=== PATIENT | female | born 1930 | race Two or more races ===

== ENCOUNTER → 2017-11-21 | Outpatient (CLI) | payer MEDICARE, MEDICAID | END | disposition home or self-care (01) | LOC: KCIC US 12:25 | DX: N28.1 Cyst of kidney, acquired (principal); N26.1 Atrophy of kidney (terminal) | CPT/HCPCS: 76700 ==

== ENCOUNTER 2020-12-04 14:00 | Emergency (ER) | payer OTHER, MEDICAID ==
[~2020-12-04] VITALS: Ht 139.7 cm; Wt 57.0 kg
[~2020-12-04 14:00] MED LIST: ACET325T9 PO; ACET500T68 PO; AMLO-186 PO; AMLO-187 PO; ASPI-482 PO; ASPI-630 PO; CALC-507 PO; CALC1CAP8 PO; CELE200C PO; CLON1PAT TD; CLON1PAT6 TD; CYAN500T7 PO; DENO60DI SQ; DOCU-109 PO; ESOM40CA PO; INSU100V35 SQ; LORA-434 PO; LORA1TAB PO; LUBI24CA7 PO; MAG30ORA2 PO; METO-239 PO; MOTILIUM PO; MULT-245 PO; NYST15CR TP; OLME1TAB51 PO; POLY17PO29 PO; POTA10TA12 PO; POTA10TA31 PO; SENN-142 PO; SIME180C9 PO; SUCR1TAB PO; TRAM50TA PO; VALS40TA2 PO; [UNRECOGNIZED DRUG - CODE] PO; [UNRECOGNIZED DRUG - CODE] PO
[2020-12-04] MEDS ORDERED: fentaNYL PF VIAL 100 MCG/2 ML VIAL IVP ONE (15:00)
--- NOTE | 2020-12-04 15:38 | ED.ADGEN ---
Past Medical History Past Medical History: Cancer, CVA, Dementia, Diabetes-Type II, GERD, Hypertension, Other Additional Past Medical Histor: SCOLIOSIS, COLON CA, GASTRITIS Past Surgical History: Other Additional Past Surgical Histo: COLON RESECTION Smoking Status: Never Smoker Alcohol Use: None General Adult EDM: Chief Complaint: MECHANICAL FALL HPI: HPI: Patient is a 89 year old female coming in for rib pain, hip pain, and head pain after a fall. History facilitated by another known that works as a building equipment operator in the facility.. She states that last night while patient was brushing her teeth she went to turn and lost her balance. She states that the patient has a h istory of difficulty with her balance and frequent falls. No loss of consciousness patient has been able to walk afterwards. Complaining of pain to her ribs but was given a Percocet earlier and states the pain is much better now. The sister she is with states that the patient has been having worsening breathing problems that been exacerbated since the fall. Does not take any blood thinners other than 81 mg aspirin Review of Systems: Review of Systems: All other systems within normal limits except for as noted in the HPI Current Medications: Current Medications Medications (Trade) Dose Ordered Sig/Tere Start Time Stop Time Status Last Admin Dose Admin Fentanyl Citrate (Fentanyl 2ml Vial) 50 mcg 1X ONCE 12/04/20 15:00 12/04/20 15:01 DC 12/04/20 15:47 50 MCG Info (CONTRAST GIVEN -- Rx MONITORING) 1 each PRN DAILY PRN 12/04/20 16:15 12/06/20 16:14 Iohexol (Omnipaque 300 Mg/ml) 100 ml STK-MED ONCE 12/04/20 16:14 12/04/20 16:15 DC Allergies: Allergies: Allergies Coded Allergies Type Severity Reaction Last Updated Verified gluten Allergy Unknown Unknown 05/30/20 Yes Physical Exam: PE: Constitutional: Well developed, well nourished, no acute distress, non-toxic appearance. [] HENT: Normocephalic, small hematoma over left occipital scalp, bilateral external ears normal, nose normal. [] Eyes: PERRLA, conjunctiva normal, no discharge. [] Neck: No rigidity, supple, no stridor. [] Cardiovascular: Regular rate and rhythm, brisk cap refill [] Lungs & Thorax: Non labored symmetric respirations, no tachypnea or respiratory distress. Left chest wall tenderness [] Abdomen: Soft, nondistended, no nontender. Skin: Warm, dry, no erythema, no rash. [] Back: Unremarkable Extremities: No deformities, range of motion grossly intact, no lower extremity edema. No deformities, no tenderness to palpation of left extremities, tenderness over left hip [] Neurologic: Alert and oriented X 3, no focal deficits noted. [] Psychologic: Affect normal, judgement normal, mood normal. [] Current Patient Data: Labs: Laboratory Tests Test 12/04/20 15:15 White Blood Count 9.1 x10^3/uL (4.0-11.0) Red Blood Count 4.01 x10^6/uL (3.50-5.40) Hemoglobin 13.5 g/dL (12.0-15.5) Hematocrit 38.9 % (36.0-47.0) Mean Corpuscular Volume 97 fL (79-100) Mean Corpuscular Hemoglobin 34 pg (25-35) Mean Corpuscular Hemoglobin Concent 35 g/dL (31-37) Red Cell Distribution Width 12.8 % (11.5-14.5) Platelet Count 224 x10^3/uL (140-400) Neutrophils (%) (Auto) 71 % (31-73) Lymphocytes (%) (Auto) 15 % (24-48) L Monocytes (%) (Auto) 12 % (0-9) H Eosinophils (%) (Auto) 2 % (0-3) Basophils (%) (Auto) 1 % (0-3) Neutrophils # (Auto) 6.5 x10^3/uL (1.8-7.7) Lymphocytes # (Auto) 1.3 x10^3/uL (1.0-4.8) Monocytes # (Auto) 1.1 x10^3/uL (0.0-1.1) Eosinophils # (Auto) 0.2 x10^3/uL (0.0-0.7) Basophils # (Auto) 0.0 x10^3/uL (0.0-0.2) Sodium Level 139 mmol/L (136-145) Potassium Level 3.9 mmol/L (3.5-5.1) Chloride Level 103 mmol/L (98-107) Carbon Dioxide Level 32 mmol/L (21-32) Anion Gap 4 (6-14) L Blood Urea Nitrogen 24 mg/dL (7-20) H Creatinine 0.7 mg/dL (0.6-1.0) Estimated GFR (Cockcroft-Gault) 78.8 BUN/Creatinine Ratio 34 (6-20) H Glucose Level 100 mg/dL (70-99) H Calcium Level 9.0 mg/dL (8.5-10.1) Total Bilirubin 0.2 mg/dL (0.2-1.0) Aspartate Amino Transferase (AST) 16 U/L (15-37) Alanine Aminotransferase (ALT) 23 U/L (14-59) Alkaline Phosphatase 64 U/L (46-116) Total Protein 6.7 g/dL (6.4-8.2) Albumin 3.1 g/dL (3.4-5.0) L Albumin/Globulin Ratio 0.9 (1.0-1.7) L Laboratory Tests 12/04/20 15:15 Laboratory Tests 12/04/20 15:15 Vital Signs: Vital Signs Date Time Temp Pulse Resp B/P (MAP) Pulse Ox O2 Delivery O2 Flow Rate FiO2 12/04/20 15:47 18 96 Room Air 12/04/20 14:45 97.5 56 125/69 (87) 97.5 EKG: EKG: [] Heart Score: C/O Chest Pain: No Risk Factors: Risk Factors: DM, Current or recent (<one month) smoker, HTN, HLP, family history of CAD, obesity. Risk Scores: Score 0 - 3: 2.5% MACE over next 6 weeks - Discharge Home Score 4 - 6: 20.3% MACE over next 6 weeks - Admit for Clinical Observation Score 7 - 10: 72.7% MACE over next 6 weeks - Early Invasive Strategies Radiology/Procedures: Radiology/Procedures: CT Head W/O Contrast: History: Reason: fall, HIT HEAD / Spl. Instructions: / History: Comparison: none Axial images were obtained without contrast. There is marked diffuse atrophy. There is no mass effect, extraaxial fluid collections or hydrocephalus. There is no gross bleed. Marked, diffuse periventricular and subcortical white matter hypoattenuation is seen. There is no focal loss of de oliveira-white matter distinction to suggest acute ischemia, i.e. stroke. Impression: No acute findings. End impression CT C-Spine without contrast: Clinical History: Reason: fall, HIT HEAD / Spl. Instructions: / History: Technique: Axial helical images of the cervical spine were obtained without contrast, axial coronal and sagittal reconstruction was performed. Findings: There is no loss of vertebral body stature. There is no prevertebral soft tissue swelling. The vertebral bodies are well aligned. There is straightening of the normal cervical lordosis which can be positional or could be chronic. The C1-C2 relationship is normal. The visualized osseous structures appear normal. Evaluation of the central canal is limited without contrast. There is multiple posterior disc bulges resulting in flattening of the thecal sac. There does not appear to be gross flattening of the cervical cord. There is marked narrowing of multiple neuroforamen. Impression: No acute findings. Clinical correlation suggested. [] CT chest abdomen and pelvis with contrast: History: Fall, left-sided pain Axial helical images of the chest abdomen and pelvis were obtained after the ad ministration of 75 cc IV Omni 300 contrast. Delayed images were obtained from above the kidneys to the urinary bladder. Comparison: none CT OF THE CHEST WITH IV CONTRAST: There is no mediastinal lymphadenopathy or hematoma. Lymphadenopathy: no Thoracic aorta: The ascending thoracic aorta is mildly dilated to 4.3 cm. Lungs and pleural margins: There is patchy opacities throughout the right lung Impression: 1. Right-sided infiltrates likely discoid atelectasis. 2. Dilated ascending thoracic aorta. End Impression CT OF THE ABDOMEN AND PELVIS WITH IV CONTRAST: Liver: Unremarkable Spleen: Unremarkable Pancreas: Unremarkable Adrenal Glands: Unremarkable Kidneys: There are simple cysts bilaterally Evaluation of stomach and bowel is limited without oral contrast. There is marked degenerative levoconvex scoliosis of thoracolumbar spine. Lymphadenopathy: no. Free fluid: no. Free air: no. The bladder appears normal. Impression: No acute findings. Course & Med Decision Making: Course & Med Decision Making Pertinent Labs and Imaging studies reviewed. (See chart for details) No acute injury found on imaging. Patient does have some atelectasis I was given a single spirometer. Discussed pain control and bowel regimen while taking narcotic pain medications. [] Dragon Disclaimer: Dragon Disclaimer: This electronic medical record was generated, in whole or in part, using a voice recognition dictation system. Departure Departure Impression: Primary Impression: Frequent falls Additional Impressions: Rib pain Atelectasis Disposition: 01 DC HOME SELF CARE/HOMELESS Condition: STABLE Referrals: FERNANDA OLIVIER MD (PCP) Patient Instructions: Incentive Spirometer Scripts Hydrocodone Bit/Acetaminophen (HYDROCODONE-APAP 5-325 ) 1 Tab Tablet 1 TAB PO PRN Q6HRS PRN for PAIN for 3 Days, #15 TAB 0 Refills Prov: ASHVIN OSMAN MD 12/04/20 Problem Qualifiers ASHVIN OSMAN MD Dec 04, 2020 15:38
[2020-12-04 15:53] LABS: BASO % 1 % (0-3); EOS # 0.2 x10^3/uL (0.0-0.7); EOS % 2 % (0-3); HEMATOCRIT 38.9 % (36.0-47.0); HEMOGLOBIN 13.5 g/dL (12.0-15.5); LYMPH # 1.3 x10^3/uL (1.0-4.8); LYMPH % 15 % (24-48); MEAN CORPUSCULAR HEMOGLOBIN 34 pg (25-35); MEAN CORPUSCULAR HGB CONC 35 g/dL (31-37); MEAN CORPUSCULAR VOLUME 97 fL (79-100); MONO # 1.1 x10^3/uL (0.0-1.1); MONO % 12 % (0-9); NEUT # 6.5 x10^3/uL (1.8-7.7); NEUT % 71 % (31-73); PLATELET COUNT 224 x10^3/uL (140-400); RED BLOOD COUNT 4.01 x10^6/uL (3.50-5.40); RED CELL DISTRIBUTION WIDTH 12.8 % (11.5-14.5); WHITE BLOOD COUNT 9.1 x10^3/uL (4.0-11.0)
[2020-12-04 16:04] VITALS: BP 124/64
[2020-12-04 16:07] LABS: CREATININE 0.7 mg/dL (0.6-1.0); GFR 78.8; POTASSIUM 3.9 mmol/L (3.5-5.1)
[2020-12-04 16:12] LABS: ALBUMIN 3.1 g/dL (3.4-5.0); ALBUMIN/GLOBULIN RATIO 0.9 (1.0-1.7); TOTAL BILIRUBIN 0.2 mg/dL (0.2-1.0); TOTAL PROTEIN 6.7 g/dL (6.4-8.2)
[2020-12-04] MEDS ORDERED: IOHEXOL 300 MG/ML 100ML VIAL. ONE (16:14)
[2020-12-04] MEDS ORDERED: IOHEXOL 300 MG/ML 100ML VIAL. IV ONE (16:15)
[2020-12-04] MEDS ORDERED: CONTRAST GIVEN. MC PRN (16:15)
--- NOTE | 2020-12-04 16:47 | RAD ---
CT Head W/O Contrast: History: Reason: fall, HIT HEAD / Spl. Instructions: / History: Comparison: none Axial images were obtained without contrast. There is marked diffuse atrophy. There is no mass effect, extraaxial fluid collections or hydrocepha zak. There is no gross bleed. Marked, diffuse periventricular and subcortical white matter hypoatten uation is seen. There is no focal loss of de oliveira-white matter distinction to suggest acute ischemia, i .e. stroke. Impression: No acute findings. End impression CT C-Spine without contrast: Clinical History: Reason: fall, HIT HEAD / Spl. Instructions: / History: Technique: Axial helical images of the cervical spine were obtained without contrast, axial coronal and sagittal reconstruction was performed. Findings: There is no loss of vertebral body stature. There is no prevertebral soft tissue swelling. The vert ebral bodies are well aligned. There is straightening of the normal cervical lordosis which can be p ositional or could be chronic. The C1-C2 relationship is normal. The visualized osseous structures ap pear normal. Evaluation of the central canal is limited without contrast. There is multiple posterio r disc bulges resulting in flattening of the thecal sac. There does not appear to be gross flattening of the cervical cord. There is marked narrowing of multiple neuroforamen. Impression: No acute findings. Clinical correlation suggested. PQRS Compliance Statement: One or more of the following individualized dose reduction techniques were utilized for this examinat ion: 1. Automated exposure control 2. Adjustment of the mA and/or kV according to patient size 3. Use of iterative reconstruction technique Electronically signed by: Dean Calvillo III, MD (12/04/2020 4:45 PM) [facility]
--- NOTE | 2020-12-04 16:58 | RAD ---
CT chest abdomen and pelvis with contrast: History: Fall, left-sided pain Axial helical images of the chest abdomen and pelvis were obtained after the administration of 75 cc IV Omni 300 contrast. Delayed images were obtained from above the kidneys to the urinary bladder. Comparison: none CT OF THE CHEST WITH IV CONTRAST: There is no mediastinal lymphadenopathy or hematoma. Lymphadenopathy: no Thoracic aorta: The ascending thoracic aorta is mildly dilated to 4.3 cm. Lungs and pleural margins: There is patchy opacities throughout the right lung Impression: 1. Right-sided infiltrates likely discoid atelectasis. 2. Dilated ascending thoracic aorta. End Impression CT OF THE ABDOMEN AND PELVIS WITH IV CONTRAST: Liver: Unremarkable Spleen: Unremarkable Pancreas: Unremarkable Adrenal Glands: Unremarkable Kidneys: There are simple cysts bilaterally Evaluation of stomach and bowel is limited without oral contrast. There is marked degenerative levoconvex scoliosis of thoracolumbar spine. Lymphadenopathy: no. Free fluid: no. Free air: no. The bladder appears normal. Impression: No acute findings. End impression PQRS Compliance Statement: One or more of the following individualized dose reduction techniques were utilized for this examinat ion: 1. Automated exposure control 2. Adjustment of the mA and/or kV according to patient size 3. Use of iterative reconstruction technique Electronically signed by: Dean Calvillo III, MD (12/04/2020 4:56 PM) [facility]
[2020-12-04] MEDS ORDERED: HYDR-2761 PO (17:39)
== END 2020-12-04 17:55 | disposition home or self-care (01) ==
LOC: ER 14:00
DX: S00.03XA Contusion of scalp, initial encounter (principal); R07.81 Pleurodynia; J98.11 Atelectasis; E11.9 Type 2 diabetes mellitus without complications; K21.9 Gastro-esophageal reflux disease without esophagitis; I10 Essential (primary) hypertension; Z98.890 Other specified postprocedural states; Z86.73 Personal history of transient ischemic attack (TIA), and cerebral infarction without residual deficits; Z85.9 Personal history of malignant neoplasm, unspecified; W18.39XA Other fall on same level, initial encounter; Y93.89 Activity, other specified; Y92.89 Other specified places as the place of occurrence of the external cause; Y99.8 Other external cause status
CPT/HCPCS: 36415; 70450; 71260; 72125; 74177; 80053; 85025; 96374; 99285; J3010; Q9967